=== PATIENT | female | born 1970 | race Two or more races ===

== ENCOUNTER 2023-10-05 06:28 | Day surgery (SDC) | payer OTHER ==
[~2023-10-05] VITALS: Ht 167.6 cm; Wt 80.7 kg
[2023-10-05] MEDS ORDERED: ceFAZolin 2 GM/D5W100ml 100 ML IV ONE (06:40)
[2023-10-05] MEDS ORDERED: LIDOCAINE 1% HCL (LOCAL ANESTH.) INJ 20ML MDV ONE (07:21)
[2023-10-05] MEDS ORDERED: BUPIVACAINE HCL 50 ML ONE (07:21)
[2023-10-05] MEDS ORDERED: fentaNYL CITRATE 100 MCG/2 ML VL ONE (07:28)
[2023-10-05] MEDS ORDERED: MEPERIDINE HCL (25 MG/ML) 1ML VIAL ONE (07:28)
[2023-10-05] MEDS ORDERED: MIDAZOLAM HCL 2MG/2ML 2ml VIAL (1mg/ml) ONE (07:28)
[2023-10-05] MEDS ORDERED: LIDOCAINE 2% JELLY 11ml (GLYDO) ONE (07:33)
[2023-10-05] MEDS ORDERED: DexAMETHasone SOD PHOS 10MG/1ML VIAL INJ ONE (07:56)
[2023-10-05] MEDS ORDERED: PROPOFOL 10 MG/ML 20 ML IV ONE (07:56)
[2023-10-05] MEDS ORDERED: ONDANSETRON HCL 4 MG/2 ML VIAL IV PRN (08:00)
[2023-10-05] MEDS ORDERED: LABETALOL HCL 5 MG/ML 4ML SYRINGE IV PRN (08:00)
[2023-10-05] MEDS ORDERED: KETOROLAC TROMETH 30 MG/ML 1ML VIAL IV ONE (08:00)
[2023-10-05] MEDS ORDERED: ePHEDrine SULFATE 50 MG/ML AMP IV PRN (08:00)
[2023-10-05] MEDS ORDERED: MIDAZOLAM HCL 2MG/2ML 2ml VIAL (1mg/ml) IV PRN (08:00)
[2023-10-05] MEDS ORDERED: HYDROmorphone HCL 2 MG/ML VL/or syr IV PRN (08:00)
[2023-10-05] MEDS ORDERED: MORPHINE SULFATE 4 MG/ML SYR/VIAL IV PRN (08:00)
[2023-10-05] MEDS ORDERED: SUGAMMADEX 200mg/2ml Vial (100MG/ML) IV ONE (08:54)
[2023-10-05] MEDS ORDERED: KETOROLAC TROMETH 30 MG/ML 1ML VIAL ONE (08:56)
[2023-10-05] MEDS ORDERED: ROCURONIUM 10MG/ML 10ML VIAL IV ONE (08:57)
[2023-10-05 09:14] VITALS: TEMP 96.8; O2SAT 99
[2023-10-05 10:14] VITALS: BP 143/82; PULSE 65; RESP 18; O2SAT 96
== END 2023-10-05 10:25 | disposition home or self-care (01) ==
LOC: SUR 06:28
PROVIDERS: ATTEND Orthopaedic Surgery
DX: S86.011A Strain of right Achilles tendon, initial encounter (principal); M66.3 Spontaneous rupture of flexor tendons; X58.XXXA Exposure to other specified factors, initial encounter; Y93.89 Activity, other specified; Y92.89 Other specified places as the place of occurrence of the external cause; Y99.8 Other external cause status
CPT/HCPCS: 27650; 73600; 76000; 88305; 88311; C1713; J1100; J1885; J2001; J2175; J2250; J2704; J3010; J3490